=== PATIENT | male | born 1960 | race Caucasian/White ===

== ENCOUNTER 2024-08-08 08:08 | Emergency (ER) | payer OTHER, SELFPAY ==
[2024-08-08 08:22] VITALS: BP 184/85; PULSE 79; RESP 16; TEMP 37.3; O2SAT 98; BMI 34.2
[2024-08-08] MEDS: KETOROLAC INJ 60 MG/2 ML VIAL 30 MG IM (09:11)
--- NOTE | 2024-08-08 09:38 | EDNOTE_ITS ---
Lower Extremity Injury RME/HPI General Chief Complaint: Hip Injury/Pain Stated Complaint: Left hip pain X 2 weeks, pt. states it's worse Time Seen by Provider: 08/08/24 08:30 Source: patient Arrival date/time: 08/08/24 08:08 63-year-old male with no known medical history presents to the emergency room with a chief complaint of left sided hip pain that radiates down his left leg x 2 weeks. Mode of arrival: ambulatory Limitations: no limitations Related Data Previous Rx's ?Medication ?Instructions ?Recorded hydrocodone 5 mg-acetaminophen 325 1 tab PO BID PRN pa in #7 tabs 09/19/20 mg tablet ibuprofen 800 mg tablet 800 mg PO Q8H PRN pain #30 t abs 09/19/20 gabapentin 100 mg capsule 100 mg PO QDAY #14 caps 07/14 09/05 Allergies Allergy/AdvReac Type Severity Reaction Status Date / Time No Known Allergies Allergy Verified 08/08/24 08:15 Review of Systems Review of Systems Systems Reviewed: All systems reviewed, normal except as documented Constitutional Constitutional: Reports system reviewed and no additional complaints, except as documented, Denies fatigue, Denies fever(s), Denies headache(s) and Denies weakness Eyes Eyes: Reports system reviewed and no additional complaints, except as documented, Denies blurry vision and Denies change in vision ENT Ears, Nose, Mouth, and Throat: Reports system reviewed and no additional complaints, except as documented, Denies otalgia, Denies headache(s), Denies nasal congestion, Denies throat swelling and Denies vertigo Cardiovascular Cardiovascular: Reports system reviewed and no additional complaints, except as documented, Denies chest pain, Denies dyspnea and Denies dyspnea on exertion Respiratory Respiratory: Reports system reviewed and no additional complaints, except as documented, Denies chest congestion, Denies cough, Denies dyspnea, Denies dyspnea on exertion and Denies wheezing Gastrointestinal Gastrointestinal: Reports system reviewed and no additional complaints, except as documented, Denies abdominal pain, Denies cramping, Denies nausea and Denies vomiting Genitourinary Genitourinary: Reports system reviewed and no additional complaints, except as documented, Denies dysuria and Denies hematuria Musculoskeletal Musculoskeletal: Reports system reviewed and no additional complaints, except as documented, Reports back pain and Reports radiating pain into limb Integumentary/Breasts Skin/Breast: Reports system reviewed and no additional complaints, except as documented and Denies wounds Neurologic Neurologic: Reports system reviewed and no additional complaints, except as docu mented, Denies confusion, Denies headache(s), Denies lack of coordination, Denies vertigo and Denies weakness Psychiatric Psychiatric: Reports system reviewed and no additional complaints, except as documented, Denies anxiety, Denies confusion, Denies depression, Denies paranoia, Denies suicidal ideation and Denies tactile hallucinations Endocrine Endocrine: Reports system reviewed and no additional complaints, except as documented and Denies fatigue Hematologic/Lymphatic Hematologic/Lymphatic: Reports system reviewed and no additional complaints, except as documented and Denies lymphadenopathy Allergic/Immunologic Allergic/Immunologic: Reports system reviewed and no additional complaints, except as documented, Denies throat swelling, Denies urticaria and Denies wheezing ED Exam General Limitations: Present no limitations General appearance: Present alert and in no apparent distress Head Head exam: Present atraumatic Eye Eye exam: Present normal appearance, PERRL and EOMI ENT ENT exam: Present normal exam, normal oropharynx and mucous membranes moist Neck Neck exam: Present normal inspection, full ROM and trachea midline Chest Chest inspection: Present normal inspection and symmetric chest wall rise Respiratory Respiratory exam: Present normal lung sounds bilaterally Cardiovascular Cardiovascular exam: Present regular rate, normal rhythm and normal heart sounds Abdominal Exam Abdominal exam: Present soft and normal bowel sounds Extremities Exam Extremities exam: Present normal inspection and full ROM Expanded Lower Extremity Exam Hip/Pelvis exam: Present normal inspection Upper leg exam: Present normal inspection Knee exam: Present normal inspection Lower leg exam: Present normal inspection Ankle exam: Present normal inspection Foot/toe exam: Present normal inspection Gait: observed and normal Back Exam Back exam: Present normal inspection, full ROM, vertebral tenderness and sciatic notch tenderness (L) Neurological Exam Neurological exam: Present alert, oriented X3 and CN II-XII intact Psychiatric Psychiatric exam: Present normal affect and normal mood Skin Skin exam: Present warm, dry, intact and normal color Course Quality Measures none Orders Category Date Time Status Ketorolac Inj [Toradol Inj] Med 08/08/24 08:54 Discontinued 30 mg IM X1 ONE Vital Signs Vital signs: Vital Signs Temperature 99.2 F 08/08/24 08:22 Pulse Rate 79 08/08/24 08:22 Respiratory Rate 16 08/08/24 08:22 Blood Pressure 184/85 H 08/08/24 08:22 Pulse Oximetry (%) 98 08/08/24 08:22 Oxygen Delivery Method Room Air 08/08/24 08:22 Extremity Injury, Lower MDM Narrative MDM Narrative:: 63-year-old male with no known medical history presents to the emergency room with a chief complaint of left sided hip pain that radiates down his left leg x 2 weeks. Patient is hemodynamically stable and in no apparent distress. The patient is able to ambulate. Patient states he is having some pain to his lumbar area of her spine that radiates down all the way to his left foot. Patient states this pain has been going on for the last 2 weeks. Patient saw his primary care provider was diagnosed with sciatica and has a referral for physical therapy. Patient denies any loss of bowel or bladder function or any saddle anesthesia. Patient denies any numbness to the lower extremities. Patient was discharged and educated to follow-up with primary care provider in the next 24 to 48 hours and return to the emergency room for any evidence of worsening signs or symptoms Patient data External records reviewed:: [facility] previous records Clinical information provided by:: patient Social determinants that could affect healthcare access:: none Patient has the following chronic illnesses:: No chronic illness How is presenting disease/condition affected by chronic disease/condition?: no chronic disease Evaluation data The following diagnostics were reviewed and interpreted by me:: lab results and radiology exam(s) Lab and/or radiology exams considered but not ordered:: Labs and radiology exams considered and ordered Interpretation Summary: N/A Medications / Prescriptions Medications or Prescriptions considered but not ordered:: Medication given Medication administrations:: Medication Administration History Discontinued Medications Ketorolac Tromethamine (Ketorolac Inj 60 Mg/2 Ml Vial) 30 mg IM X1 ONE Stop: 08/08/24 08:55 Last Admin: 08/08/24 09:11 Dose: 30 mg Documented By: CN Medication given Consultations Consultation(s) initiated? (list below): No Diagnosis Extremity Injury, Lower Differential Diagnosis: other (Sciatica/lumbar back sprain/) Most likely diagnosis given after review of the tests above:: Sciatica Admission Indicated Admission indicated?: not indicated Admission Request Was there a request for admission?: No Disposition Plan Disposition Plan: Discharge Discharge Attestation Discharge Attestation: The patient and all family members were given an opportunity to ask questions and understood the discharge instructions. Discharge instructions specifically effects, indications for sooner follow up or return to the emergency department, and the expected course of current diagnosis. Patient condition: Stable Discharge Plan Plan Patient Disposition: HOME (Self Care) Discharge Disposition comment: Stable Prescriptions/Referrals Prescriptions/Med Rec: New gabapentin 100 mg capsule 100 mg PO QDAY Qty: 14 0RF No Action hydrocodone-acetaminophen 5-325 mg tablet 1 tab PO BID MDD 3 PRN (Reason: pain) Qty: 7 0RF ibuprofen 800 mg tablet 800 mg PO Q8H PRN (Reason: pain) Qty: 30 0RF Problem List Clinical Impression: Sciatica Patient/Caregiver Discharge Instructions Education Materials: ED Sciatica Additional Instructions: Please follow-up with your primary care provider in the next 24 to 48 hours For any evidence of worsening signs or symptoms return to the emergency room immediately Print Language: Fijian Stand Alone Forms: Nina Award Info., Patient Portal Info Letter PA/EXTRUDING DEPARTMENT SUPERVISOR Supervising Physician PA/EXTRUDING DEPARTMENT SUPERVISOR Supervising Physician: Dr. Mark
[2024-08-08 09:43] VITALS: BP 138/76; PULSE 68; RESP 18; TEMP 36.6; O2SAT 100
== END 2024-08-08 09:44 | disposition home or self-care (01) ==
LOC: SERX 09:06
PROVIDERS: Emergency Provider Emergency Medicine; PCP Family Medicine
DX: M54.32 Sciatica, left side (principal)
CPT/HCPCS: 96372; 99283; J1885

== ENCOUNTER → 2024-11-04 | Outpatient (CLI) | payer OTHER, SELFPAY ==
--- NOTE | 2024-11-04 12:00 | XR_ITS ---
Examination: MRI lumbar spine without contrast Date and time of exam: November 04, 2024 1208 hours INDICATIONS: Low back pain radiating to the left leg beginning 4 months ago Technique: Multiple MRI axial and sagittal sections lumbar spine. Sagittal T2-weighted images, TR 3500, TE 118 T1 weighted transverse sections, TR 688 T8.5, T2-weighted sagittal sections T1 weighted sagittal sections TR 621, TE 30 T2 axial sections, TR 4, 190, TE 84. Findings: Adequate alignment lumbar vertebral bodies Minimal old wedging L1 T12 T11 Hemangiomatous change L3 No acute lumbar fracture Diffuse lumbar disc desiccation L5-S1 4 mm central right paracentral disc bulge extending to the foraminal regions with mild left moderate right L5 ganglionic compression L4-L5 8mm extruded disc, primarily central left paracentral subarticular, displacing the left L5 nerve root L2-L3 2 mm central lumbar disc bulge IMPRESSION: L5-S1 4 mm central right paracentral disc bulge extending to the foraminal regions with mild left moderate right L5 ganglionic compression L4-L5 8mm extruded disc, severely displacing the left L5 nerve root
== END | disposition home or self-care (01) ==
LOC: SMRI 11:03
PROVIDERS: PCP Family Medicine; Referring Provider Family Medicine; Visit Provider Family Medicine
DX: M51.370 Other intervertebral disc degeneration, lumbosacral region with discogenic back pain only (principal); M51.26 Other intervertebral disc displacement, lumbar region; G95.20 Unspecified cord compression
CPT/HCPCS: 72148